=== PATIENT | female | born 1950 | race Caucasian/White ===

== ENCOUNTER 2024-01-10 06:38 | Emergency (ER) | payer MEDICARE, OTHER, SELFPAY ==
[2024-01-10 06:46] VITALS: BP 181/85
[2024-01-10 07:10] VITALS: BMI 21.5
[2024-01-10 07:17] LABS: % Eosinophils 5.7 % (0-6); % Immature Granulocytes 0.2 % (0-0.5); % Lymphocytes 28.2 % (20.5-51.1); % Monocytes 9.8 % (1.7-9.3); % Neutrophils 55.1 % (42.2-75.2); Absolute Basophils 0.1 10^3/uL (0-0.2); Absolute Eosinophils 0.3 10^3/uL (0-0.7); Absolute Lymphocytes 1.6 10^3/uL (1.2-3.4); Absolute Monocytes 0.6 10^3/uL (0.1-0.6); Absolute Neutrophils 3.2 10^3/uL (1.4-6.5); Hematocrit 38.7 % (37.0-47.0); Hemoglobin 13.4 g/dL (12.0-16.0); Mean Corp Hgb Conc. 34.6 g/dL (33.0-37.0); Mean Corpuscular Hgb 33.1 pg (27.0-31.0); Mean Corpuscular Volume 95.6 fL (81.0-99.0); Mean Platelet Volume 8.9 fL (7.4-10.4); Nucleated Red Blood Cells % 0 %; Platelet Count 198 10^3/uL (130-400); Red Blood Cell Count 4.05 10^6/uL (4.20-5.40); Red Cell Dist. Width 11.1 % (11.5-14.5); White Blood Cell Count 5.7 10^3/uL (4.8-10.8)
--- NOTE | 2024-01-10 07:29 | ED.GENMED ---
History of Present Illness
General
Chief Complaint: Dizziness
Source: patient and spouse
Exam Limitations: none
Time Seen by Provider: 01/10/24 06:55
Nursing documentation reviewed up to this point in time: agreed with
History of Present Illness
History of Present Illness:
73-year-old female with a past medical history of hypertension, vertigo who presents to the emergency room for evaluation of dizziness. Patient reports onset of symptoms last night while she was laying in bed�she reports that with positional
changes in bed she would get sensation of dizziness. She says that this morning when she woke up and went to go to the bathroom symptoms were more intense and so she came to the emergency room for assessment. She says she does have a history of
paroxysmal vertigo in the past but says that symptoms today seem distinct�in the past she describes a room spinning sensation and today she describes more of a disequilibrium, as if her balance is off when she moves. She denies any falls or head
trauma. She denies any headache. She denies any neck pain. She denies any change in her speech or vision. She denies any focal weakness or numbness in her extremities. She says she has had some nausea but no vomiting. She denies other
complaints.
Past History
Past History
ED Past Medical History: HTN and Other (anxiety)
ED Past Surgical History: Orthopedic
Social History
Tobacco: Non-smoker
Alcohol: None
Drug: None
Personal:
Living: with family
Family History
Family History: CAD (father w/ [place] at 77) and Other (mother w/ Afib); Negative Early CAD
Review of Systems
Review of Systems
All Other Systems: ROS reviewed and negative except as documented in HPI and ROS
Constitutional: Denies fever or chills
EENT: Reports other (Denies congestion)
Respiratory: Denies cough or trouble breathing
Cardiac: Denies chest pain
ABD/GI: Reports nausea; Denies abdominal pain or vomiting
Musculoskeletal: Denies neck pain or back pain
Neurological: Reports dizzy; Denies headache, weakness or numbness
Phy Exam
Physical Exam
Physical Exam:
General: Awake, alert, oriented x3; no acute distress
Head: Normocephalic, atraumatic
Eyes: Conjunctiva normal, EOMI, pupils equal round and reactive to light bilaterally; patient has a positive [place]-Hallpike towards the left with horizontal nystagmus, no vertical or rotary nystagmus
Throat: Airway intact, handling secretions
Neck: Trachea midline, supple without meningismus
Lungs: Clear to auscultation bilaterally, no wheezing, rales, rhonchi
Heart: Regular rate and rhythm, no murmurs, gallops, or rubs
Abd: Soft, non distended, nontender
Neuro: Cranial nerves intact 2 through 12, speech fluent no dysarthria or aphasia, motor and sensory function intact in all extremities, no limb ataxia
Extremities: Warm and well-perfused with no edema
Scores
Heart Failure Risk
Heart Failure Risk Score: Not Applicable
Heart Score for Chest Pain Patients
STEMI patient?: Not applicable
Withdrawal Assessment of Alcohol
Withdrawal Assessment Completed?: Not applicable
Course
Orders/Labs/Results
Orders:
Orders
01/10/24 06:52
EKG [Electrocardiogram (*1)] Stat
Reason for Study: Vertigo / Dizzy
EKG- Treatment ONCE
01/10/24 06:57
CT Head W/o Iv Contrast Urgent
Comment:
Reason For Exam: dizziness
01/10/24 07:08
Complete Blood Count/With Diff Urgent
Comprehensive Metabolic Panel Urgent
01/10/24 07:27
Pt Eval And Treat Urgent
Treatment: BPPV--please trial Florentino
Activity Level: Ambulate
Abnormal Lab Results
01/10/24
07:08
RBC 4.05 L 10^6/uL
(4.20-5.40)
MCH 33.1 H pg
(27.0-31.0)
RDW 11.1 L %
(11.5-14.5)
Monocytes % 9.8 H %
(1.7-9.3)
BUN 25 H mg/dl
(7-17)
Glucose 100 H mg/dl
(70-99)
01/10/24 07:08
01/10/24 07:08
Vital Signs
Initial and Last Documented VS:
Initial Vital Signs
Temp Pulse Resp BP Pulse Ox
36.7 C 57 16 181/85 98
01/10/24 06:46 01/10/24 06:46 01/10/24 06:46 01/10/24 06:46 01/10/24 06:46
Last Documented Vital Signs
Temp Pulse Resp BP Pulse Ox
36.7 C 49 5 181/85 95
01/10/24 06:46 01/10/24 07:45 01/10/24 07:45 01/10/24 06:46 01/10/24 07:45
MDM/Problems Addressed
Differential Diagnosis Includes:
Peripheral vertigo�BPPV, M�ni�re yeas, labyrinthitis; central vertigo�stroke, hemorrhage, mass
MDM/Problems Addressed:
73-year-old female with history as above presents for evaluation of dizziness with movement that started last night and seems more intense this morning. She has had peripheral vertigo in the past but says that symptoms today seem slightly
different�abdullahi describes more of a disequilibrium feeling whereas typically she gets an intense room spinning sensation. Vital signs significant for hypertension but otherwise unremarkable. Physical exam as above�notably she has unidirectional
horizontal nystagmus with a positive Saurav-Hallpike towards the left�during Saurav-Hallpike maneuver towards the left patient had intense dizziness and says that she began to have her typical room spinning sensation that she gets when she has vertigo
normally. Will plan to check basic labs. Will check CT head. Check an EKG. Her exam does seem most consistent with a diagnosis of peripheral vertigo, consult placed to physical therapy to evaluate for Florentino maneuver.
Labs reviewed: CBC unremarkable, CMP no clinically significant abnormalities. CT head negative for any acute pathology. EKG shows sinus rhythm with no AV block. Patient evaluated by PT and again had positive Ridgewood-Hallpike to the left. They
performed Florentino maneuver. Patient feeling a bit better. Presentation is consistent with peripheral vertigo. I think patient is stable for discharge at this point will prescribe meclizine as needed, given outpatient resources for vestibular rehab
and ENT follow-up. Patient very comfortable with this plan. Spoke about return precautions and all questions were answered.
Chronic conditions affecting care:
Vertigo
Acute Exacerbation and/or Progression of Chronic Illness:
Acutely hypertensive
Acute Exacerbation and/or Progression of Chronic Illness: HTN
*Radiology
Radiology exam reviewed: radiology read reviewed
*Pulse Oximetry
Patient hypoxic: no
*EKG
Interpreted by ED Provider?: Yes
Heart Rate: 59
Rate: bradycardiac
Rhythm: sinus
[place]: normal axis
Interval: normal interval
QRS Pattern: normal QRS
Ischemia: non-specific ST changes
*Critical Care Note
Total Time (30-74mins, 75-104mins- exclusive of procedures): Not Applicable
Data Reviewed
Review of Other/Old Records Reveals: Labs and Records
Source: patient and spouse
Patient Management
Discussion with other providers: Other (Discussed with physical therapy)
ED Attending Note
-
Portions of this chart may have been created with voice recognition software.� Occasional wrong word or��sound alike� substitutions may have occurred due to the inherent limitations of voice recognition software.
Discharge Plan
Departure
Patient Disposition: Home (Routine Discharge)
Date of Disposition: 01/10/24
Time of Disposition: 08:45
Patient with high blood pressure during this ER visit?: Yes
Discharge Problem:
Vertigo
Instructions: Vertigo (a Type of Dizziness) (DC)
Prescriptions:
New
meclizine 25 mg tablet
25 mg PO BID PRN (Reason: dizziness) Qty: 20 0RF
No Action
escitalopram oxalate 10 MG tablet
15 mg PO DAILY
carvedilol 6.25 mg Tablet
6.25 mg PO BID
ascorbic acid (vitamin C) 2,000 mg Tablet Extended Release
5,000 mg PO DAILY
calcium carbonate [Calcium 600] 600 mg calcium (1,500 mg) Tablet
1,200 mg PO DAILY
omega-3 fatty acids Capsule
1 cap PO DAILY
cholecalciferol (vitamin D3) [Vitamin D3] 125 mcg (5,000 unit) Tablet
125 mcg PO DAILY
mecobalamin (vitamin B12) [B12 Active] 1,000 mcg Tablet,Chewable
3,000 mcg PO DAILY
7-oxodehydroepiandroste (bulk) Powder
1 ea MISCELLANEOUS DAILY
Pregnenolone
1 tab PO DAILY
strontium [id number]
1 tab PO DAILY
Referrals:
Maikel Chou DO [Family Provider] -
Monica Perez MD [Active] - Call in 1-3 days for appt
Activity Restrictions/Additional Instructions:
Thank you for visiting the Emergency Department at [facility].
1. Please schedule a follow up appointment as directed. Call first thing tomorrow morning to make an appointment.
2. If indicated, please take your medications as instructed and indicated on discharge paperwork.
3. If any of your symptoms do not improve, or persist, or become more severe within 6-12 hours, please return to the emergency department for further care.
4. Please return to the emergency department if you develop a headache, neck pain/stiffness, fever greater than 100.4F, chest pain, shortness of breath, persistent nausea, vomiting, slurred speech, difficulty walking, numbness/tingling, weakness,
signs of infection or any other symptoms that are worrisome to you.
Please call [phone] if you have any questions.
Interventions
Interventions:
*Risk Screen - Suicide Last Done: 01/10/24 07:52
*General Assessment Last Done: 01/10/24 06:46
ED- Fall Risk Assessment Last Done: 01/10/24 07:52
ED- Neurological Assessment Last Done: 01/10/24 07:52
ED- Cardiac Assessment Last Done: 01/10/24 07:52
Discharge Date and Time
Print Language: [place]
[2024-01-10 07:35] LABS: ALT (SGPT) 28 U/L (0-35); AST (SGOT) 30 U/L (14-36); Albumin 4.4 g/dl (3.5-5.0); Alkaline Phosphatase 73 U/L (38-126); Blood Urea Nitrogen 25 mg/dl (7-17); Calcium 9.3 mg/dl (8.4-10.2); Carbon Dioxide 29 mmol/L (22-30); Chloride 106 mmol/L (98-107); Estimated Creatinine Clearance 46 ml/min; Glucose 100 mg/dl (70-99); Potassium 3.7 mmol/L (3.5-5.1); Sodium 142 mmol/L (135-145); Total Bilirubin 0.6 mg/dl (0.2-1.3); Total Protein 7.2 g/dl (6.3-8.2); eGFR > 60.00
[2024-01-10 07:52] VITALS: BP 141/74
[2024-01-10 08:14] VITALS: BP 158/61
[2024-01-10 08:27] VITALS: BP 141/74; PULSE 50; O2SAT 96
[2024-01-10 09:00] VITALS: BP 155/44
[2024-01-10 09:38] VITALS: BP 155/44
== END 2024-01-10 09:40 | disposition home or self-care (01) ==
LOC: EMR 06:38
PROVIDERS: EMERGENCY PHYSICIAN Emergency Medicine; FAMILY PHYSICIAN Internal Medicine
DX: R42 Dizziness and giddiness (principal); I10 Essential (primary) hypertension
CPT/HCPCS: 99285; 70450; 80053; 85025; 93005

== ENCOUNTER 2024-01-16 16:36 | Outpatient (RCR) | payer MEDICARE, OTHER, SELFPAY | END 2024-01-16 23:59 | disposition home or self-care (01) | LOC: RPT 16:36 | PROVIDERS: ATTENDING PHYSICIAN Internal Medicine | DX: H81.12 Benign paroxysmal vertigo, left ear (principal); Z73.6 Limitation of activities due to disability | CPT/HCPCS: 97112; 97162 ==

== ENCOUNTER 2024-01-30 19:07 | Outpatient (RCR) | payer MEDICARE, OTHER, SELFPAY | END 2024-01-30 23:59 | disposition home or self-care (01) | LOC: RPT 19:07 | PROVIDERS: ATTENDING PHYSICIAN Internal Medicine | DX: H81.12 Benign paroxysmal vertigo, left ear (principal) | CPT/HCPCS: 97112 ==

== ENCOUNTER → 2024-09-12 09:47 | Outpatient (REF) | payer MEDICARE, OTHER, SELFPAY | LOC: PAVMRI 09:47 | PROVIDERS: ATTENDING PHYSICIAN Physician Assistant Surgical; FAMILY PHYSICIAN Internal Medicine | DX: M25.561 Pain in right knee (principal) | CPT/HCPCS: 73721 ==

== ENCOUNTER 2024-09-26 05:44 | Emergency (ER) | payer MEDICARE, OTHER, SELFPAY ==
[2024-09-26 05:52] VITALS: BP 169/74
[2024-09-26 06:04] VITALS: BMI 21.8
--- NOTE | 2024-09-26 07:07 | ED.GENMED ---
History of Present Illness
General
Chief Complaint: Fall
Source: patient
Time Seen by Provider: 09/26/24 06:59
History of Present Illness
History of Present Illness:
This patient is a 73-year-old female who says that on Saturday while in the basement she tried to take a 'shortcut' to get onto the stairs, climbed over a step, caught her foot and fell. She says she does not know if she landed on her back or her
side but she thinks she landed on her right side. She is certain that she did not hit her head and denies loss of consciousness. She says she 'kind of rolled'. There were no preceding symptoms such as chest pain, dizziness, etc. Afterwards, she
notes areas of feeling 'sore' described as bilateral neck area, right inguinal area. She denies chest pain, shortness of breath, numbness, tingling, focal weakness, headache, change in vision, change in speech, dizziness, abdominal pain, nausea,
vomiting, or other complaints. She presents today because her mother is receiving hospice care at home, and that caregiver recommended that the patient present to the ER to rule out intracranial injury.
Past History
Past History
ED Past Medical History: HTN and Other (anxiety)
ED Past Surgical History: Orthopedic
Social History
Tobacco: Non-smoker
Alcohol: None
Drug: None
Personal:
Living: with family
Family History
Family History: CAD (father w/ [place] at 77) and Other (mother w/ Afib); Negative Early CAD
Phy Exam
Physical Exam
Physical Exam:
GENERAL: Alert , in no apparent distress, very pleasant
EYE: pupils equal and reactive, EOMI, no nystagmus
NECK: Supple, no significant adenopathy, no midline tenderness.
ENT: o/p clr, mmm, no signs of head or facial injury noted on exam.
CARDIAC: Regular rate and rhythm .
LUNGS: Clear breath sounds bilaterally, no acute respiratory distress, no wheezes/rales/rhonchi
ABDOMEN: Soft, without focal tenderness, no r/g, no cvat
NEUROLOGICAL: Alert and oriented, no focal neuro deficits
SKIN: Warm and dry, skin intact. There is resolving bruising noted at the right forearm and right lateral superior thigh area without associated bony tenderness or limitation in range of motion
MUSCULOSKELETAL: No edema, well perfused. Full range of motion of all extremities without pain or difficulty
PSYCH: Normal and appropriate interaction.
Course
Orders/Labs/Results
Orders:
Orders
09/26/24 06:05
CT Head W/o Iv Contrast Urgent
Comment:
Reason For Exam: fall with headstrike
Cervical Spine wo Contrast CT [CT Cervical Spine W/o Iv Contr] Urgent
Comment:
Reason For Exam: fall with headstrike
Vital Signs
Initial and Last Documented VS:
Initial Vital Signs
Temp Pulse Resp BP Pulse Ox
98.4 F 57 16 169/74 98
09/26/24 05:52 09/26/24 05:52 09/26/24 05:52 09/26/24 05:52 09/26/24 05:52
Last Documented Vital Signs
Temp Pulse Resp BP Pulse Ox
98.4 F 57 16 169/74 98
09/26/24 05:52 09/26/24 05:52 09/26/24 05:52 09/26/24 05:52 09/26/24 05:52
*Critical Care Note
Total Time (30-74mins, 75-104mins- exclusive of procedures): Not Applicable
Update Note
Update Note:
Patient presents to the Emergency Department with __fall
Number and Complexity of Problems Addressed at the Encounter
� Chronic conditions affecting care:
� Acute Exacerbation and/or Progression of Chronic Illness:
� Differential Diagnosis includes: But not limited to pelvic fracture, intracranial bleed, cervical fracture, etc. etc.
Amount and/or Complexity of Data to be Reviewed and Analyzed
� I performed an independent evaluation of and my interpretation is:
EKG:
CT: Head and neck, read by vision, NAD, no fracture
Xrays:
Laboratory Studies:
Other:
� Review of other/old records reveals:
� Clinical information was obtained by an independent historian:
� Prescriptions/Medications Considered but not given:
� Further testing considered but not performed: I recommended a pelvic x-ray to rule out pelvic fracture given patient's inguinal pain however she declines, understanding that this is still a possibility. Patient states that her
inguinal pain is much better today compared to yesterday and she would like to pursue conservative management at home, will return to ED if she changes her mind or pain persists/worsens
Risk of Complications and/or Morbidity or Mortality of Patient Management
� Social determinants of health affecting care:
� Discussion with other providers (PCP, Hospitalists, Consultants, etc):
� Escalation of care including admission/observation vs risk of discharge considered: Patient presents status post fall, workup unremarkable here, discussed with patient portance of follow-up and reasons return to the ER.
ED Attending Note
-
Portions of this chart may have been created with voice recognition software.� Occasional wrong word or��sound alike� substitutions may have occurred due to the inherent limitations of voice recognition software.
Discharge Plan
Departure
Patient Disposition: Home (Routine Discharge)
Date of Disposition: 09/26/24
Time of Disposition: 07:11
Patient with high blood pressure during this ER visit?: Yes
Condition: Good
Discharge Problem:
Contusion
Instructions: Contusion (DC), Preventing falls in adults, BLOOD PRESSURE
Prescriptions:
No Action
escitalopram oxalate 10 MG tablet
15 mg PO DAILY
carvedilol 6.25 mg Tablet
6.25 mg PO BID
ascorbic acid (vitamin C) 2,000 mg Tablet Extended Release
5,000 mg PO DAILY
calcium carbonate [Calcium 600] 600 mg calcium (1,500 mg) Tablet
1,200 mg PO DAILY
omega-3 fatty acids Capsule
1 cap PO DAILY
cholecalciferol (vitamin D3) [Vitamin D3] 125 mcg (5,000 unit) Tablet
125 mcg PO DAILY
mecobalamin (vitamin B12) [B12 Active] 1,000 mcg Tablet,Chewable
3,000 mcg PO DAILY
7-oxodehydroepiandroste (bulk) Powder
1 ea MISCELLANEOUS DAILY
Pregnenolone
1 tab PO DAILY
strontium [id number]
1 tab PO DAILY
meclizine 25 mg tablet
25 mg PO BID PRN (Reason: dizziness) Qty: 20 0RF
Referrals:
Maikel Chou I., DO [Family Provider] - Follow up in 2-3 days
Activity Restrictions/Additional Instructions:
IF YOU DEVELOP PERSISTENT OR NEW PAIN, SEVERE HEADACHE, NUMBNESS, TINGLING, WEAKNESS, CHEST PAIN, SHORTNESS OF BREATH, OR OTHER WORRISOME SIGNS, PLEASE RETURN TO THE ER IMMEDIATELY.
Interventions
Interventions:
*Risk Screen - Suicide Last Done: 09/26/24 05:52
*General Assessment Last Done: 09/26/24 06:04
*Neglect/Abuse Screening Last Done: 09/26/24 06:04
*ED COVID-19 Vaccine History Last Done: 09/26/24 06:04
ED-Musculoskeletal Assessment Last Done: 09/26/24 06:04
ED- Neurological Assessment Last Done: 09/26/24 06:04
ED-Skin Assessment Last Done: 09/26/24 06:04
Discharge Date and Time
Print Language: [place]
[2024-09-26 07:22] VITALS: BP 134/68
== END 2024-09-26 07:25 | disposition home or self-care (01) ==
LOC: EMR 05:44
PROVIDERS: EMERGENCY PHYSICIAN Emergency Medicine; FAMILY PHYSICIAN Internal Medicine
DX: S50.11XA Contusion of right forearm, initial encounter (principal); S70.11XA Contusion of right thigh, initial encounter; W19.XXXA Unspecified fall, initial encounter; I10 Essential (primary) hypertension; F41.9 Anxiety disorder, unspecified; Z82.49 Family history of ischemic heart disease and other diseases of the circulatory system
CPT/HCPCS: 99284; 70450; 72125

== ENCOUNTER → 2025-04-01 13:03 | Outpatient (REF) | payer MEDICARE, OTHER, SELFPAY | LOC: HWRAD 13:03 | PROVIDERS: ATTENDING PHYSICIAN Internal Medicine | DX: I10 Essential (primary) hypertension (principal); I48.0 Paroxysmal atrial fibrillation; R10.11 Right upper quadrant pain; R07.81 Pleurodynia | CPT/HCPCS: 71101; 76700 ==

== ENCOUNTER → 2025-06-01 12:45 | Outpatient (REF) | payer MEDICARE, OTHER, SELFPAY | LOC: HWRAD 12:45 | PROVIDERS: ATTENDING PHYSICIAN Obstetrics & Gynecology; FAMILY PHYSICIAN Internal Medicine; REFERRING PHYSICIAN Urology | DX: N32.81 Overactive bladder (principal); N39.3 Stress incontinence (female) (male); M62.89 Other specified disorders of muscle | CPT/HCPCS: 76830; 76856; 76857 ==

== ENCOUNTER 2025-07-20 06:33 | Outpatient (RCR) | payer MEDICARE, OTHER, SELFPAY | END 2025-07-20 23:59 | disposition home or self-care (01) | LOC: RPT 06:33 | PROVIDERS: ATTENDING PHYSICIAN Urology; FAMILY PHYSICIAN Internal Medicine | DX: N32.81 Overactive bladder (principal); N39.3 Stress incontinence (female) (male); M62.89 Other specified disorders of muscle; R10.20 Pelvic and perineal pain unspecified side; Z73.6 Limitation of activities due to disability | CPT/HCPCS: 97163; 97530 ==

== ENCOUNTER → 2025-07-20 13:07 | Outpatient (REF) | payer MEDICARE, OTHER, SELFPAY | LOC: HWWDC 13:07 | PROVIDERS: ATTENDING PHYSICIAN Obstetrics & Gynecology; FAMILY PHYSICIAN Internal Medicine | DX: Z12.31 Encounter for screening mammogram for malignant neoplasm of breast (principal) | CPT/HCPCS: 77063; 77067 ==